=== PATIENT | female | born 1965 | race Two or more races ===

== ENCOUNTER → 2023-12-09 | Emergency (ER) | payer MEDICARE, OTHER ==
[~2023-12-09] VITALS: Ht 170.2 cm; Wt 81.6 kg
[~2023-12-09] MED LIST: ACET-2605 PO; ACETAMINOPHEN ES 500 MG TABLET ONE; ACETAMINOPHEN ES 500 MG TABLET PO ONE; ACYC200C31 PO; CLIN300C12 PO; IBUP-1955 PO
[2023-12-09 15:47] VITALS: BP 141/87; TEMP 98.7; O2SAT 100
[2023-12-09 16:52] LABS: APPEARANCE,URINE CLEAR (CLEAR); BILIRUBIN,URINE NEGATIVE (NEGATIVE); BLOOD, URINE 2+ Ery/uL (NEGATIVE); COLOR,URINE YELLOW (YELLOW); KETONES,URINE NEGATIVE (NEGATIVE); LEUKOCYTE ESTERASE ,URINE 3+ (NEGATIVE); NITRITE, URINE NEGATIVE (NEGATIVE); PROTEIN,URINE NEGATIVE (NEGATIVE); UGLUCOSE NEGATIVE (NEGATIVE)
[2023-12-09 17:17] LABS: ADD URINE CULTURE YES; BACTERIA,URINE 3+ /HPF (None Seen); RBC,URINE 21-50 /HPF (0-2); WBC,URINE 51-80 /HPF (0-3)
== END | disposition home or self-care (01) ==
LOC: ER 15:29
DX: A60.04 Herpesviral vulvovaginitis (principal); G20.A1 Parkinson's disease without dyskinesia, without mention of fluctuations; I10 Essential (primary) hypertension; J44.9 Chronic obstructive pulmonary disease, unspecified; Z88.0 Allergy status to penicillin; Z88.2 Allergy status to sulfonamides; Z88.8 Allergy status to other drugs, medicaments and biological substances; Z60.2 Problems related to living alone
CPT/HCPCS: 81001; 82962-TC; 87086-TC